=== PATIENT | male | born 1945 | race Caucasian/White ===

== ENCOUNTER → 2016-10-09 | Outpatient (CLI) | payer OTHER ==
[~2016-10-09] VITALS: Ht 177.8 cm; Wt 166.9 kg
[~2016-10-09] MED LIST: ASPIRIN81 M1 PO; Atarax,Vistaril PO; CELEBREX200 MG PO; COUMADIN,JANTOV10 MG PO; HUMULIN 70100 UNIT/2 SC; HUMULIN N100 UNITS/ SQ; LIPITOR40 MG PO; METOPROLOL SUCC25 MG PO; NITROGLYCERIN0.4 MG SL; PROTONIX40 MG PO; Tylenol Regular Stre PO; Vicodin,Lortab 5/500 PO; XARELTO20 MG PO; ZESTRIL,PRINIV2.5 MG PO; Zocor PO
[2016-10-09 14:02] LABS: POINT-OF-CARE METER ID UU13113694
[2016-10-09 15:27] LABS: POINT-OF-CARE METER ID UU13113819
== END | disposition home or self-care (01) ==
LOC: AMB 13:12
PROVIDERS: Specialist
DX: Z12.11 Encounter for screening for malignant neoplasm of colon (principal); D12.2 Benign neoplasm of ascending colon; D12.0 Benign neoplasm of cecum; D12.3 Benign neoplasm of transverse colon; D12.5 Benign neoplasm of sigmoid colon; K63.5 Polyp of colon; K62.1 Rectal polyp; K64.8 Other hemorrhoids; Z83.71 Family history of colonic polyps; Z79.01 Long term (current) use of anticoagulants; I48.91 Unspecified atrial fibrillation; I10 Essential (primary) hypertension; E11.9 Type 2 diabetes mellitus without complications; E78.5 Hyperlipidemia, unspecified; G47.30 Sleep apnea, unspecified; E66.9 Obesity, unspecified; Z68.43 Body mass index [BMI] 50.0-59.9, adult; M16.10 Unilateral primary osteoarthritis, unspecified hip; Z96.653 Presence of artificial knee joint, bilateral; Z98.61 Coronary angioplasty status; Z79.82 Long term (current) use of aspirin; Z79.4 Long term (current) use of insulin; Z82.49 Family history of ischemic heart disease and other diseases of the circulatory system; Z88.1 Allergy status to other antibiotic agents
CPT/HCPCS: 82948; 88305